=== PATIENT | female | born 2000 | race Caucasian/White ===

== ENCOUNTER → 2024-09-14 14:44 | Outpatient (CLI) | payer OTHER, MEDICAID, SELFPAY ==
[2024-09-14 17:53] LABS: HIV 1 & 2 Ab/Ag 4th Gen Combo NEGATIVE (NEGATIVE); Hep C Virus Ab w/Reflex Quant NEGATIVE s/c (NEGATIVE)
== END ==
LOC: LAB 14:45
PROVIDERS: PCP Family Medicine; Referring Provider Family Medicine; Visit Provider Family Medicine
DX: Z11.3 Encounter for screening for infections with a predominantly sexual mode of transmission (principal); B00.9 Herpesviral infection, unspecified; Z12.4 Encounter for screening for malignant neoplasm of cervix
CPT/HCPCS: 36415; 86780; 86803; 87389